=== PATIENT | female | born 1930 | race African-American/Black ===

== ENCOUNTER 2019-05-05 18:20 | Inpatient (IN) | payer MEDICARE, BC ==
[~2019-05-05] VITALS: Ht 172.7 cm; Wt 65.8 kg
[2019-05-05 20:00] VITALS: BP 124/50
[2019-05-05] MEDS ORDERED: DEXTROSE 50% WATER 50ML SYRINGE IV PRN ×2 (20:00→20:30)
[2019-05-05 20:21] VITALS: BP 135/60
[2019-05-05] MEDS: BLOOD SUGAR DIAGNOSTIC STRIP TEST SCH (21:50)
[2019-05-05] MEDS: INSULIN LISPRO 100 UNITS/ML SUBCUT SCH (21:53)
[2019-05-05] MEDS ORDERED: CLONIDINE 0.2MG TABLET PO PRN (22:00)
[2019-05-05] MEDS ORDERED: ONDANSETRON HCL 4MG TABLET PO PRN (22:00)
[2019-05-05] MEDS ORDERED: ACETAMINOPHEN 650MG SUPP PR PRN (22:00)
[2019-05-06 06:24] LABS: BASOPHILS % 0.1 % (0.0-2.0); EOSINOPHILS % 0.1 % (0.0-5.0); HEMATOCRIT. 24.3 % (36.0-48.0); LYMPHOCYTES % 7.5 % (20.0-50.0); MEAN CORPUSCULAR HEMOGLOBIN 27.4 pg (28.0-32.0); MEAN PLATELET VOLUME 7.6 fl (7.4-10.4); MONOCYTES % 10.3 % (2.0-8.0); PLATELET 230 x1000/uL (130-400); RED BLOOD CELL COUNT 2.93 mill/uL (4.2-5.4); RED CELL DISTRIBUTION WIDTH 14.9 % (11.6-14.6)
[2019-05-06] MEDS: BLOOD SUGAR DIAGNOSTIC STRIP TEST SCH ×4 (06:32→20:30)
[2019-05-06] MEDS: INSULIN LISPRO 100 UNITS/ML SUBCUT SCH ×4 (06:35→22:02)
[2019-05-06 06:42] LABS: CHLORIDE 103 mEq/L (98-107)
[2019-05-06 08:00] VITALS: BP 155/56
[2019-05-06] MEDS: FAMOTIDINE 20MG TABLET PO SCH (08:24)
[2019-05-06] MEDS: HYDROCODONE/ACETAMINOPHEN 5/325MG TABLET PO PRN ×2 (08:25→23:45)
[2019-05-06] MEDS ORDERED: POTASSIUM CHLORIDE 20MEQ TABLET SR PO NR (08:45)
[2019-05-06] MEDS ORDERED: POTASSIUM CHLORIDE 20MEQ TABLET SR PO SCH (09:00)
[2019-05-06] MEDS ORDERED: ENOXAPARIN 40MG/0.4ML SYR SUBCUT SCH (09:00)
[2019-05-06] MEDS ORDERED: CLONIDINE 0.1MG TABLET PO PRN (16:00)
[2019-05-06 16:25] LABS: CLARITY URINE CLOUDY (CLEAR); COLOR URINE YELLOW (YELLOW); KETONES URINE NEGATIVE (NEGATIVE); LEUKOCYTE ESTERASE URINE NEGATIVE (NEGATIVE); NITRITE URINE NEGATIVE (NEGATIVE); OCCULT BLOOD URINE 1+ (NEGATIVE); PH URINE 5.5 (4.5-8.0); PROTEIN URINE 2+ (NEGATIVE); SPECIFIC GRAVITY URINE 1.018 (1.005-1.030)
[2019-05-06 20:00] VITALS: BP 124/82
[2019-05-06] MEDS ORDERED: NON FORMULARY PATIENT HOME MED XX SCH (20:45)
[2019-05-06 20:50] LABS: TOTAL IRON BINDING CAPACITY 212 ug/dL (250-450)
[2019-05-06] MEDS: RIVAROXABAN 15 MG TABLET PO SCH (23:10)
[2019-05-07] MEDS: BLOOD SUGAR DIAGNOSTIC STRIP TEST SCH ×4 (05:59→21:40)
[2019-05-07] MEDS: INSULIN LISPRO 100 UNITS/ML SUBCUT SCH ×4 (06:00→21:40)
[2019-05-07] MEDS: HYDROCODONE/ACETAMINOPHEN 5/325MG TABLET PO PRN (06:21)
[2019-05-07 07:03] LABS: BASOPHILS % 0.5 % (0.0-2.0); EOSINOPHILS % 0.8 % (0.0-5.0); HEMATOCRIT. 24.2 % (36.0-48.0); HEMOGLOBIN. 8.2 g/dL (12.0-16.0); LYMPHOCYTES % 19.3 % (20.0-50.0); MEAN CORPUSCULAR HEMOGLOBIN 28.4 pg (28.0-32.0); MEAN CORPUSCULAR VOLUME 83.9 fL (81.0-99.0); MEAN PLATELET VOLUME 7.4 fl (7.4-10.4); MONOCYTES % 11.6 % (2.0-8.0); NEUTROPHILS % 67.8 % (40.0-76.0); PLATELET 271 x1000/uL (130-400); RED BLOOD CELL COUNT 2.88 mill/uL (4.2-5.4); RED CELL DISTRIBUTION WIDTH 14.8 % (11.6-14.6)
[2019-05-07 07:47] LABS: CHLORIDE 102 mEq/L (98-107)
[2019-05-07 07:56] LABS: HAPTOGLOBIN 407 mg/dL (30-200)
[2019-05-07 08:11] VITALS: BP 98/46
[2019-05-07] MEDS: FAMOTIDINE 20MG TABLET PO SCH (08:33)
[2019-05-07] MEDS: POTASSIUM CHLORIDE 20MEQ TABLET SR PO SCH (08:33)
[2019-05-07] MEDS: RIVAROXABAN 15 MG TABLET PO SCH ×2 (08:34→16:30)
[2019-05-07] MEDS ORDERED: FERROUS SULFATE 325MG TABLET PO SCH (18:15)
[2019-05-07] MEDS: DOCUSATE SODIUM 100MG CAPSULE PO SCH (18:22)
[2019-05-07 20:00] VITALS: BP 123/48
[2019-05-08] MEDS: BLOOD SUGAR DIAGNOSTIC STRIP TEST SCH ×5 (06:35→20:51)
[2019-05-08] MEDS: HYDROCODONE/ACETAMINOPHEN 5/325MG TABLET PO PRN (06:37)
[2019-05-08 06:55] LABS: BASOPHILS % 0.4 % (0.0-2.0); EOSINOPHILS % 0.9 % (0.0-5.0); HEMATOCRIT. 23.1 % (36.0-48.0); HEMOGLOBIN. 8.2 g/dL (12.0-16.0); LYMPHOCYTES % 20.3 % (20.0-50.0); MEAN CORPUSCULAR HEMOGLOBIN 29.4 pg (28.0-32.0); MEAN CORPUSCULAR VOLUME 83.2 fL (81.0-99.0); MEAN PLATELET VOLUME 7.1 fl (7.4-10.4); MONOCYTES % 11.3 % (2.0-8.0); NEUTROPHILS % 67.1 % (40.0-76.0); PLATELET 351 x1000/uL (130-400); RED BLOOD CELL COUNT 2.78 mill/uL (4.2-5.4); RED CELL DISTRIBUTION WIDTH 14.6 % (11.6-14.6)
[2019-05-08 07:17] LABS: CHLORIDE 100 mEq/L (98-107)
[2019-05-08 07:54] VITALS: BP 113/51
[2019-05-08 08:33] LABS: FOLIC ACID (FOLATE) SERUM 17.9 ng/mL (>5.38)
[2019-05-08] MEDS ORDERED: IRON SUCROSE COMPLEX 100 MG in SODIUM CHLORIDE 0.9% 50 ML IV SCH ×2 (09:00→21:00)
[2019-05-08] MEDS: INSULIN LISPRO 100 UNITS/ML SUBCUT SCH ×4 (09:00→20:59)
[2019-05-08] MEDS: FAMOTIDINE 20MG TABLET PO SCH (09:29)
[2019-05-08] MEDS: POTASSIUM CHLORIDE 20MEQ TABLET SR PO SCH (09:29)
[2019-05-08] MEDS: RIVAROXABAN 15 MG TABLET PO SCH ×2 (09:29→17:36)
[2019-05-08] MEDS: DOCUSATE SODIUM 100MG CAPSULE PO SCH ×2 (09:29→17:36)
[2019-05-08] MEDS ORDERED: CYANOCOBALAMIN 1000MCG/ML VIAL IM NR (10:45)
[2019-05-08] MEDS ORDERED: LACTULOSE 20G/30ML UDC PO NR (10:45)
[2019-05-08 20:00] VITALS: BP 121/53
[2019-05-08] MEDS: IRON SUCROSE COMPLEX 100 MG in SODIUM CHLORIDE 0.9% 100 ML IV SCH (20:11)
[2019-05-09] MEDS: HYDROCODONE/ACETAMINOPHEN 5/325MG TABLET PO PRN ×3 (00:34→23:36)
[2019-05-09] MEDS: BLOOD SUGAR DIAGNOSTIC STRIP TEST SCH ×6 (06:05→21:10)
[2019-05-09] MEDS: INSULIN LISPRO 100 UNITS/ML SUBCUT SCH ×4 (06:08→21:42)
[2019-05-09 07:58] LABS: BASOPHILS % 0.3 % (0.0-2.0); EOSINOPHILS % 0.6 % (0.0-5.0); HEMOGLOBIN. 7.3 g/dL (12.0-16.0); LYMPHOCYTES % 22.8 % (20.0-50.0); MEAN CORPUSCULAR HEMOGLOBIN 27.5 pg (28.0-32.0); MEAN CORPUSCULAR VOLUME 82.7 fL (81.0-99.0); MEAN PLATELET VOLUME 6.8 fl (7.4-10.4); MONOCYTES % 13.7 % (2.0-8.0); NEUTROPHILS % 62.6 % (40.0-76.0); PLATELET 389 x1000/uL (130-400); RED BLOOD CELL COUNT 2.66 mill/uL (4.2-5.4); RED CELL DISTRIBUTION WIDTH 14.7 % (11.6-14.6)
[2019-05-09 08:06] VITALS: BP 130/54
[2019-05-09] MEDS: DOCUSATE SODIUM 100MG CAPSULE PO SCH ×2 (08:25→17:25)
[2019-05-09] MEDS: POTASSIUM CHLORIDE 20MEQ TABLET SR PO SCH (08:25)
[2019-05-09] MEDS: RIVAROXABAN 15 MG TABLET PO SCH ×2 (08:26→17:25)
[2019-05-09] MEDS: FAMOTIDINE 20MG TABLET PO SCH (08:26)
[2019-05-09] MEDS ORDERED: ACETAMINOPHEN 500MG TABLET PO NR (11:15)
[2019-05-09] MEDS ORDERED: DIPHENHYDRAMINE 25MG CAPSULE PO NR (11:15)
[2019-05-09 20:00] VITALS: BP 108/50
[2019-05-09] MEDS: IRON SUCROSE COMPLEX 100 MG in SODIUM CHLORIDE 0.9% 100 ML IV SCH (21:41)
[2019-05-10] MEDS: BLOOD SUGAR DIAGNOSTIC STRIP TEST SCH ×4 (06:24→21:31)
[2019-05-10] MEDS: INSULIN LISPRO 100 UNITS/ML SUBCUT SCH ×4 (06:24→21:46)
[2019-05-10 08:00] VITALS: BP 126/50
[2019-05-10] MEDS: RIVAROXABAN 15 MG TABLET PO SCH ×2 (09:03→17:23)
[2019-05-10] MEDS: FAMOTIDINE 20MG TABLET PO SCH (09:03)
[2019-05-10] MEDS: POTASSIUM CHLORIDE 20MEQ TABLET SR PO SCH (09:03)
[2019-05-10] MEDS: HYDROCODONE/ACETAMINOPHEN 5/325MG TABLET PO PRN ×2 (09:03→18:27)
[2019-05-10] MEDS: DOCUSATE SODIUM 100MG CAPSULE PO SCH ×2 (09:03→17:23)
[2019-05-10 09:22] LABS: BASOPHILS % 0.5 % (0.0-2.0); EOSINOPHILS % 0.7 % (0.0-5.0); HEMATOCRIT. 27.8 % (36.0-48.0); HEMOGLOBIN. 9.2 g/dL (12.0-16.0); MEAN CORPUSCULAR HEMOGLOBIN 27.8 pg (28.0-32.0); MEAN CORPUSCULAR VOLUME 83.9 fL (81.0-99.0); MEAN PLATELET VOLUME 6.6 fl (7.4-10.4); MONOCYTES % 10.2 % (2.0-8.0); NEUTROPHILS % 72.6 % (40.0-76.0); PLATELET 524 x1000/uL (130-400); RED BLOOD CELL COUNT 3.31 mill/uL (4.2-5.4); RED CELL DISTRIBUTION WIDTH 15.1 % (11.6-14.6)
[2019-05-10] MEDS: LACTULOSE 20G/30ML UDC PO SCH ×3 (15:50→21:31)
[2019-05-10] MEDS ORDERED: ROSU20TA2 MT (18:54)
[2019-05-10] MEDS ORDERED: SITA1TAB6 MT (18:54)
[2019-05-10] MEDS ORDERED: CHLO25TA2 MT (18:54)
[2019-05-10] MEDS ORDERED: IPRA4AER INH (18:54)
[2019-05-10] MEDS ORDERED: AMLO-79 MT (18:54)
[2019-05-10] MEDS ORDERED: CHOL500051 MT (18:54)
[2019-05-10 20:00] VITALS: BP 112/52
[2019-05-10] MEDS: IRON SUCROSE COMPLEX 100 MG in SODIUM CHLORIDE 0.9% 100 ML IV SCH (21:31)
[2019-05-11] VITALS (8 sets, daily range): BP systolic 101–154; BP diastolic 45–77
[2019-05-11] MEDS: BLOOD SUGAR DIAGNOSTIC STRIP TEST SCH ×4 (06:22→21:00)
[2019-05-11] MEDS: HYDROCODONE/ACETAMINOPHEN 5/325MG TABLET PO PRN ×2 (08:01→14:53)
[2019-05-11] MEDS: POTASSIUM CHLORIDE 20MEQ TABLET SR PO SCH (08:01)
[2019-05-11] MEDS: DOCUSATE SODIUM 100MG CAPSULE PO SCH ×2 (08:01→17:00)
[2019-05-11] MEDS: FAMOTIDINE 20MG TABLET PO SCH (08:01)
[2019-05-11] MEDS: RIVAROXABAN 15 MG TABLET PO SCH ×2 (08:01→16:58)
[2019-05-11] MEDS: INSULIN LISPRO 100 UNITS/ML SUBCUT SCH ×4 (08:05→23:13)
[2019-05-11 12:03] LABS: CHLORIDE 99 mEq/L (98-107)
[2019-05-11 12:13] LABS: BASOPHILS % 0.5 % (0.0-2.0); EOSINOPHILS % 0.3 % (0.0-5.0); HEMOGLOBIN. 7.5 g/dL (12.0-16.0); LYMPHOCYTES % 9.7 % (20.0-50.0); MEAN CORPUSCULAR HEMOGLOBIN 28.5 pg (28.0-32.0); MEAN CORPUSCULAR VOLUME 83.5 fL (81.0-99.0); MEAN PLATELET VOLUME 6.6 fl (7.4-10.4); MONOCYTES % 8.9 % (2.0-8.0); NEUTROPHILS % 80.6 % (40.0-76.0); PLATELET 559 x1000/uL (130-400); RED BLOOD CELL COUNT 2.63 mill/uL (4.2-5.4); RED CELL DISTRIBUTION WIDTH 15.1 % (11.6-14.6)
[2019-05-11 19:30] LABS: TOTAL IRON BINDING CAPACITY 197 ug/dL (250-450)
[2019-05-11] MEDS ORDERED: DIPHENHYDRAMINE 25MG CAPSULE PO SCH (19:45)
[2019-05-11] MEDS ORDERED: ACETAMINOPHEN 500MG TABLET PO SCH (19:45)
[2019-05-11] MEDS: IRON SUCROSE COMPLEX 100 MG in SODIUM CHLORIDE 0.9% 100 ML IV SCH (21:00)
[2019-05-12 00:58] LABS: HEMATOCRIT 29.7 % (36.0-48.0); HEMOGLOBIN 9.8 g/dL (12.0-16.0)
[2019-05-12 02:00] VITALS: BP 126/71
[2019-05-12] MEDS: BLOOD SUGAR DIAGNOSTIC STRIP TEST SCH ×4 (06:03→21:12)
[2019-05-12] MEDS: INSULIN LISPRO 100 UNITS/ML SUBCUT SCH ×4 (06:36→21:26)
[2019-05-12 07:32] LABS: BASOPHILS % 0.4 % (0.0-2.0); EOSINOPHILS % 0.5 % (0.0-5.0); HEMATOCRIT. 30.2 % (36.0-48.0); LYMPHOCYTES % 15.7 % (20.0-50.0); MEAN CORPUSCULAR HEMOGLOBIN 28.4 pg (28.0-32.0); MEAN CORPUSCULAR VOLUME 86.9 fL (81.0-99.0); MEAN PLATELET VOLUME 6.7 fl (7.4-10.4); MONOCYTES % 9.5 % (2.0-8.0); NEUTROPHILS % 73.9 % (40.0-76.0); PLATELET 603 x1000/uL (130-400); RED BLOOD CELL COUNT 3.48 mill/uL (4.2-5.4); RED CELL DISTRIBUTION WIDTH 14.9 % (11.6-14.6)
[2019-05-12 07:58] LABS: HEMOGLOBIN. 9.9 g/dL (12.0-16.0)
[2019-05-12 08:24] LABS: CHLORIDE 104 mEq/L (98-107)
[2019-05-12 08:30] VITALS: BP 152/67
[2019-05-12] MEDS: POTASSIUM CHLORIDE 20MEQ TABLET SR PO SCH (09:20)
[2019-05-12] MEDS: RIVAROXABAN 15 MG TABLET PO SCH ×2 (09:20→16:13)
[2019-05-12] MEDS: FAMOTIDINE 20MG TABLET PO SCH (09:20)
[2019-05-12] MEDS: DOCUSATE SODIUM 100MG CAPSULE PO SCH ×2 (09:20→16:13)
[2019-05-12] MEDS: HYDROCODONE/ACETAMINOPHEN 5/325MG TABLET PO PRN ×2 (11:23→16:14)
[2019-05-12 20:00] VITALS: BP 118/68
[2019-05-12] MEDS: IRON SUCROSE COMPLEX 100 MG in SODIUM CHLORIDE 0.9% 100 ML IV SCH (22:47)
[2019-05-13] MEDS: HYDROCODONE/ACETAMINOPHEN 5/325MG TABLET PO PRN ×4 (02:43→21:37)
[2019-05-13] MEDS: BLOOD SUGAR DIAGNOSTIC STRIP TEST SCH ×4 (06:49→20:23)
[2019-05-13] MEDS: INSULIN LISPRO 100 UNITS/ML SUBCUT SCH ×4 (07:26→21:38)
[2019-05-13] MEDS: POTASSIUM CHLORIDE 20MEQ TABLET SR PO SCH (08:57)
[2019-05-13] MEDS: RIVAROXABAN 15 MG TABLET PO SCH ×2 (08:57→16:57)
[2019-05-13] MEDS: FAMOTIDINE 20MG TABLET PO SCH (08:58)
[2019-05-13] MEDS: DOCUSATE SODIUM 100MG CAPSULE PO SCH ×2 (08:58→16:57)
[2019-05-13 20:00] VITALS: BP 135/72
[2019-05-13] MEDS: INSULIN GLARGINE UD 100 UNITS/ML SYR SUBCUT SCH (21:39)
[2019-05-14] MEDS: BLOOD SUGAR DIAGNOSTIC STRIP TEST SCH ×4 (05:35→21:00)
[2019-05-14] MEDS: HYDROCODONE/ACETAMINOPHEN 5/325MG TABLET PO PRN ×3 (05:46→14:33)
[2019-05-14] MEDS: INSULIN LISPRO 100 UNITS/ML SUBCUT SCH ×4 (06:07→21:00)
[2019-05-14 08:00] VITALS: BP 137/71
[2019-05-14] MEDS: DOCUSATE SODIUM 100MG CAPSULE PO SCH ×2 (09:02→16:48)
[2019-05-14] MEDS: FAMOTIDINE 20MG TABLET PO SCH (09:02)
[2019-05-14] MEDS: FERROUS SULFATE 325MG TABLET PO SCH ×3 (09:02→16:48)
[2019-05-14] MEDS: POTASSIUM CHLORIDE 20MEQ TABLET SR PO SCH (09:02)
[2019-05-14] MEDS: RIVAROXABAN 15 MG TABLET PO SCH ×2 (09:02→16:48)
[2019-05-14] MEDS: INSULIN GLARGINE UD 100 UNITS/ML SYR SUBCUT SCH ×2 (09:03→22:38)
[2019-05-14] MEDS ORDERED: TRAMADOL HCL/ACETAMINOPHEN 37.5/325MG TABLET PO SCH (14:15)
[2019-05-14] MEDS: LACTULOSE 20G/30ML UDC PO SCH ×2 (16:48→21:00)
[2019-05-14 20:00] VITALS: BP 108/58
[2019-05-15 08:16] VITALS: BP 159/70
[2019-05-15] MEDS: LACTULOSE 20G/30ML UDC PO SCH (08:31)
[2019-05-15] MEDS: FERROUS SULFATE 325MG TABLET PO SCH ×3 (08:31→16:27)
[2019-05-15] MEDS: FAMOTIDINE 20MG TABLET PO SCH (08:31)
[2019-05-15] MEDS: RIVAROXABAN 15 MG TABLET PO SCH ×2 (08:31→16:50)
[2019-05-15] MEDS: POTASSIUM CHLORIDE 20MEQ TABLET SR PO SCH (08:31)
[2019-05-15] MEDS: DOCUSATE SODIUM 100MG CAPSULE PO SCH ×2 (08:31→16:27)
[2019-05-15] MEDS: HYDROCODONE/ACETAMINOPHEN 5/325MG TABLET PO PRN ×3 (08:47→20:22)
[2019-05-15] MEDS: INSULIN LISPRO 100 UNITS/ML SUBCUT SCH ×4 (08:51→21:41)
[2019-05-15] MEDS: INSULIN GLARGINE UD 100 UNITS/ML SYR SUBCUT SCH ×2 (09:36→21:41)
[2019-05-15] MEDS: BLOOD SUGAR DIAGNOSTIC STRIP TEST SCH ×3 (11:18→20:23)
[2019-05-15] MEDS ORDERED: RIVA20TA MT (13:28)
[2019-05-15] MEDS ORDERED: XAR15 MT (13:28)
[2019-05-15 20:00] VITALS: BP 133/67
[2019-05-16] MEDS: BLOOD SUGAR DIAGNOSTIC STRIP TEST SCH ×4 (05:35→21:46)
[2019-05-16] MEDS: INSULIN LISPRO 100 UNITS/ML SUBCUT SCH ×4 (05:36→21:45)
[2019-05-16 06:59] LABS: CHLORIDE 106 mEq/L (98-107)
[2019-05-16 08:00] VITALS: BP 158/70
[2019-05-16] MEDS: RIVAROXABAN 15 MG TABLET PO SCH ×2 (09:17→16:24)
[2019-05-16] MEDS: DOCUSATE SODIUM 100MG CAPSULE PO SCH ×2 (09:17→16:24)
[2019-05-16] MEDS: FERROUS SULFATE 325MG TABLET PO SCH ×3 (09:17→16:24)
[2019-05-16] MEDS: FAMOTIDINE 20MG TABLET PO SCH (09:17)
[2019-05-16 09:30] LABS: BASOPHILS % 0.2 % (0.0-2.0); EOSINOPHILS % 0.5 % (0.0-5.0); HEMATOCRIT. 29.1 % (36.0-48.0); HEMOGLOBIN. 9.6 g/dL (12.0-16.0); MEAN CORPUSCULAR HEMOGLOBIN 28.6 pg (28.0-32.0); MEAN CORPUSCULAR VOLUME 86.5 fL (81.0-99.0); MEAN PLATELET VOLUME 6.2 fl (7.4-10.4); MONOCYTES % 6.6 % (2.0-8.0); NEUTROPHILS % 82.7 % (40.0-76.0); PLATELET 796 x1000/uL (130-400); RED BLOOD CELL COUNT 3.37 mill/uL (4.2-5.4); RED CELL DISTRIBUTION WIDTH 16.7 % (11.6-14.6)
[2019-05-16] MEDS: POTASSIUM CHLORIDE 20MEQ TABLET SR PO SCH (09:34)
[2019-05-16] MEDS ORDERED: HYDROCODONE/ACETAMINOPHEN 5/325MG TABLET PO PRN (10:00)
[2019-05-16] MEDS: INSULIN GLARGINE UD 100 UNITS/ML SYR SUBCUT SCH ×2 (10:01→21:45)
[2019-05-16 10:49] VITALS: BP 153/73
[2019-05-16 20:00] VITALS: BP 110/59
[2019-05-16 23:51] LABS: CLARITY URINE CLEAR (CLEAR); COLOR URINE YELLOW (YELLOW); KETONES URINE NEGATIVE (NEGATIVE); LEUKOCYTE ESTERASE URINE NEGATIVE (NEGATIVE); NITRITE URINE NEGATIVE (NEGATIVE); OCCULT BLOOD URINE NEGATIVE (NEGATIVE); PH URINE 7.5 (4.5-8.0); PROTEIN URINE NEGATIVE (NEGATIVE); SPECIFIC GRAVITY URINE 1.003 (1.005-1.030); UROBILINOGEN URINE 0.2 E.U./dL (0.2-1.0)
[2019-05-17 04:06] LABS: 25-HYDROXY VITAMIN D3 4.7 ng/mL (.)
[2019-05-17] MEDS: BLOOD SUGAR DIAGNOSTIC STRIP TEST SCH ×4 (05:43→21:41)
[2019-05-17] MEDS: INSULIN LISPRO 100 UNITS/ML SUBCUT SCH ×4 (06:08→21:59)
[2019-05-17 07:30] VITALS: BP 152/71
[2019-05-17 08:00] VITALS: BP 152/71
[2019-05-17] MEDS: RIVAROXABAN 15 MG TABLET PO SCH ×2 (08:33→16:24)
[2019-05-17] MEDS: FAMOTIDINE 20MG TABLET PO SCH (08:33)
[2019-05-17] MEDS: POTASSIUM CHLORIDE 20MEQ TABLET SR PO SCH (08:33)
[2019-05-17] MEDS: FERROUS SULFATE 325MG TABLET PO SCH ×3 (08:33→16:24)
[2019-05-17] MEDS: DOCUSATE SODIUM 100MG CAPSULE PO SCH ×2 (08:33→16:24)
[2019-05-17] MEDS: HYDROCODONE/ACETAMINOPHEN 5/325MG TABLET PO PRN ×2 (08:33→21:43)
[2019-05-17] MEDS: INSULIN GLARGINE UD 100 UNITS/ML SYR SUBCUT SCH ×2 (10:16→21:55)
[2019-05-17 10:56] LABS: BASOPHILS % 0.4 % (0.0-2.0); EOSINOPHILS % 0.4 % (0.0-5.0); HEMOGLOBIN. 9.5 g/dL (12.0-16.0); MEAN CORPUSCULAR HEMOGLOBIN 29.3 pg (28.0-32.0); MEAN CORPUSCULAR VOLUME 86.8 fL (81.0-99.0); MONOCYTES % 7.5 % (2.0-8.0); NEUTROPHILS % 81.7 % (40.0-76.0); PLATELET 737 x1000/uL (130-400); RED BLOOD CELL COUNT 3.23 mill/uL (4.2-5.4)
[2019-05-17] MEDS ORDERED: BISACODYL 5MG TABLET PO PRN (11:15)
[2019-05-17] MEDS: LACTULOSE 20G/30ML UDC PO SCH ×2 (16:24→21:00)
[2019-05-17 20:00] VITALS: BP 136/74
[2019-05-18] MEDS: BLOOD SUGAR DIAGNOSTIC STRIP TEST SCH ×4 (05:59→21:44)
[2019-05-18 08:00] VITALS: BP 155/65
[2019-05-18] MEDS: LACTULOSE 20G/30ML UDC PO SCH (08:26)
[2019-05-18] MEDS: FERROUS SULFATE 325MG TABLET PO SCH ×3 (08:27→16:03)
[2019-05-18] MEDS: HYDROCODONE/ACETAMINOPHEN 5/325MG TABLET PO PRN (08:27)
[2019-05-18] MEDS: RIVAROXABAN 15 MG TABLET PO SCH ×2 (08:27→17:49)
[2019-05-18] MEDS: DOCUSATE SODIUM 100MG CAPSULE PO SCH ×2 (08:27→16:03)
[2019-05-18] MEDS: FAMOTIDINE 20MG TABLET PO SCH (08:27)
[2019-05-18] MEDS: INSULIN LISPRO 100 UNITS/ML SUBCUT SCH ×4 (09:00→21:46)
[2019-05-18] MEDS: INSULIN GLARGINE UD 100 UNITS/ML SYR SUBCUT SCH ×2 (10:58→22:46)
[2019-05-18 20:00] VITALS: BP 139/58
[2019-05-19] MEDS: BLOOD SUGAR DIAGNOSTIC STRIP TEST SCH ×4 (05:50→21:39)
[2019-05-19] MEDS: INSULIN LISPRO 100 UNITS/ML SUBCUT SCH ×4 (06:38→21:43)
[2019-05-19 08:21] VITALS: BP 155/70
[2019-05-19] MEDS: FERROUS SULFATE 325MG TABLET PO SCH ×3 (09:25→16:55)
[2019-05-19] MEDS: FAMOTIDINE 20MG TABLET PO SCH (09:25)
[2019-05-19] MEDS: DOCUSATE SODIUM 100MG CAPSULE PO SCH ×2 (09:25→16:55)
[2019-05-19] MEDS: HYDROCODONE/ACETAMINOPHEN 5/325MG TABLET PO PRN ×2 (09:26→18:41)
[2019-05-19] MEDS: INSULIN GLARGINE UD 100 UNITS/ML SYR SUBCUT SCH ×2 (09:29→21:44)
[2019-05-19 11:03] LABS: BASOPHILS % 0.5 % (0.0-2.0); EOSINOPHILS % 0.7 % (0.0-5.0); HEMATOCRIT. 27.2 % (36.0-48.0); HEMOGLOBIN. 9.1 g/dL (12.0-16.0); LYMPHOCYTES % 13.3 % (20.0-50.0); MEAN CORPUSCULAR HEMOGLOBIN 29.2 pg (28.0-32.0); MEAN CORPUSCULAR VOLUME 86.9 fL (81.0-99.0); MEAN PLATELET VOLUME 6.1 fl (7.4-10.4); MONOCYTES % 10.6 % (2.0-8.0); NEUTROPHILS % 74.9 % (40.0-76.0); PLATELET 668 x1000/uL (130-400); RED BLOOD CELL COUNT 3.12 mill/uL (4.2-5.4)
[2019-05-19 11:10] LABS: CHLORIDE 100 mEq/L (98-107)
[2019-05-19] MEDS: LACTULOSE 20G/30ML UDC PO SCH ×2 (17:41→21:38)
[2019-05-19 20:00] VITALS: BP 166/72
[2019-05-19] MEDS: RIVAROXABAN 15 MG TABLET PO SCH (21:46)
[2019-05-20] MEDS: BLOOD SUGAR DIAGNOSTIC STRIP TEST SCH ×4 (06:01→20:14)
[2019-05-20] MEDS: INSULIN LISPRO 100 UNITS/ML SUBCUT SCH ×4 (06:17→22:10)
[2019-05-20 08:26] VITALS: BP 147/65
[2019-05-20] MEDS: LACTULOSE 20G/30ML UDC PO SCH (08:54)
[2019-05-20] MEDS: RIVAROXABAN 15 MG TABLET PO SCH ×2 (08:55→16:36)
[2019-05-20] MEDS: FERROUS SULFATE 325MG TABLET PO SCH ×3 (08:55→16:36)
[2019-05-20] MEDS: HYDROCODONE/ACETAMINOPHEN 5/325MG TABLET PO PRN (08:55)
[2019-05-20] MEDS: DOCUSATE SODIUM 100MG CAPSULE PO SCH ×2 (08:55→16:36)
[2019-05-20] MEDS: FAMOTIDINE 20MG TABLET PO SCH (08:55)
[2019-05-20] MEDS: INSULIN GLARGINE UD 100 UNITS/ML SYR SUBCUT SCH ×2 (10:26→22:10)
[2019-05-20] MEDS ORDERED: CLONIDINE 0.2MG TABLET PO PRN (13:15)
[2019-05-20 20:00] VITALS: BP 159/72
[2019-05-20] MEDS: ASCORBIC ACID 500 MG TABLET PO SCH (20:14)
[2019-05-20] MEDS: ZINC SULFATE 220 MG ( 50 ) CAPSULE PO SCH (20:14)
[2019-05-20] MEDS: HYDROCORTISONE ACETATE 25MG SUPP PR SCH (20:14)
[2019-05-21] MEDS: BLOOD SUGAR DIAGNOSTIC STRIP TEST SCH ×3 (05:38→20:55)
[2019-05-21] MEDS: INSULIN LISPRO 100 UNITS/ML SUBCUT SCH ×3 (05:38→22:14)
[2019-05-21 08:00] VITALS: BP 151/71
[2019-05-21] MEDS: RIVAROXABAN 15 MG TABLET PO SCH ×2 (08:58→17:22)
[2019-05-21] MEDS: HYDROCORTISONE ACETATE 25MG SUPP PR SCH ×2 (08:58→20:55)
[2019-05-21] MEDS: FAMOTIDINE 20MG TABLET PO SCH (08:58)
[2019-05-21] MEDS: ASCORBIC ACID 500 MG TABLET PO SCH (08:58)
[2019-05-21] MEDS: ZINC SULFATE 220 MG ( 50 ) CAPSULE PO SCH (08:58)
[2019-05-21] MEDS: DOCUSATE SODIUM 100MG CAPSULE PO SCH ×2 (08:58→17:22)
[2019-05-21] MEDS: FERROUS SULFATE 325MG TABLET PO SCH ×3 (08:58→17:23)
[2019-05-21] MEDS: HYDROCODONE/ACETAMINOPHEN 5/325MG TABLET PO PRN ×3 (09:00→22:25)
[2019-05-21] MEDS: INSULIN GLARGINE UD 100 UNITS/ML SYR SUBCUT SCH ×2 (10:08→22:14)
[2019-05-21] MEDS ORDERED: HYDR25SU37 RC (10:51)
[2019-05-21] MEDS ORDERED: RIVA20TA MT (10:51)
[2019-05-21] MEDS ORDERED: DOCU250C14 MT (11:38)
[2019-05-21] MEDS ORDERED: HYDR-4001 MT (11:38)
[2019-05-21] MEDS ORDERED: LIDOCAINE HCL/EPINEPHRINE 1%-EPI 1:100,000 30 ML VIAL INFIL ONE (12:00)
[2019-05-21] MEDS ORDERED: LIDOCAINE HCL/EPINEPHRINE 1%-EPI 1:100,000 20 ML VIAL INFIL NR (12:30)
[2019-05-21 20:00] VITALS: BP_SYST 111; BP_SYST 143; BP_DIAS 52; BP_DIAS 80
[2019-05-22 01:23] VITALS: BP 143/52
[2019-05-22] MEDS: HYDROCODONE/ACETAMINOPHEN 5/325MG TABLET PO PRN ×2 (03:43→19:29)
[2019-05-22] MEDS: BLOOD SUGAR DIAGNOSTIC STRIP TEST SCH ×4 (06:35→21:11)
[2019-05-22] MEDS: INSULIN LISPRO 100 UNITS/ML SUBCUT SCH ×4 (06:35→21:00)
[2019-05-22 08:00] VITALS: BP 140/63
[2019-05-22] MEDS: FAMOTIDINE 20MG TABLET PO SCH (08:13)
[2019-05-22] MEDS: FERROUS SULFATE 325MG TABLET PO SCH ×3 (08:14→16:25)
[2019-05-22] MEDS: RIVAROXABAN 15 MG TABLET PO SCH ×2 (08:14→16:25)
[2019-05-22] MEDS: DOCUSATE SODIUM 100MG CAPSULE PO SCH ×2 (08:14→16:25)
[2019-05-22] MEDS: ZINC SULFATE 220 MG ( 50 ) CAPSULE PO SCH (08:14)
[2019-05-22] MEDS: ASCORBIC ACID 500 MG TABLET PO SCH (08:14)
[2019-05-22] MEDS: HYDROCORTISONE ACETATE 25MG SUPP PR SCH ×2 (08:50→21:00)
[2019-05-22] MEDS: INSULIN GLARGINE UD 100 UNITS/ML SYR SUBCUT SCH ×2 (09:35→22:09)
[2019-05-22] MEDS ORDERED: LACTULOSE 20G/30ML UDC PO SCH (09:45)
[2019-05-22 20:00] VITALS: BP 139/59
[2019-05-23] MEDS: HYDROCODONE/ACETAMINOPHEN 5/325MG TABLET PO PRN ×2 (04:08→17:27)
[2019-05-23] MEDS: INSULIN LISPRO 100 UNITS/ML SUBCUT SCH ×4 (05:44→20:47)
[2019-05-23] MEDS: BLOOD SUGAR DIAGNOSTIC STRIP TEST SCH ×4 (05:44→20:41)
[2019-05-23 07:54] LABS: BASOPHILS % 0.6 % (0.0-2.0); EOSINOPHILS % 2.5 % (0.0-5.0); HEMATOCRIT. 28.5 % (36.0-48.0); HEMOGLOBIN. 9.4 g/dL (12.0-16.0); LYMPHOCYTES % 24.1 % (20.0-50.0); MEAN CORPUSCULAR HEMOGLOBIN 28.5 pg (28.0-32.0); MEAN CORPUSCULAR VOLUME 85.9 fL (81.0-99.0); MEAN PLATELET VOLUME 6.2 fl (7.4-10.4); MONOCYTES % 13.8 % (2.0-8.0); PLATELET 540 x1000/uL (130-400); RED BLOOD CELL COUNT 3.32 mill/uL (4.2-5.4); RED CELL DISTRIBUTION WIDTH 17.9 % (11.6-14.6)
[2019-05-23 08:00] VITALS: BP 136/64
[2019-05-23] MEDS: RIVAROXABAN 15 MG TABLET PO SCH ×2 (08:11→16:23)
[2019-05-23] MEDS: FAMOTIDINE 20MG TABLET PO SCH (08:11)
[2019-05-23] MEDS: ASCORBIC ACID 500 MG TABLET PO SCH (08:11)
[2019-05-23] MEDS: FERROUS SULFATE 325MG TABLET PO SCH ×3 (08:11→16:23)
[2019-05-23] MEDS: ZINC SULFATE 220 MG ( 50 ) CAPSULE PO SCH (08:11)
[2019-05-23] MEDS: HYDROCORTISONE ACETATE 25MG SUPP PR SCH ×2 (08:12→20:39)
[2019-05-23] MEDS: POLYETHYLENE GLYCOL 3350 (17GM) 1 DOSE PACK PO SCH (08:12)
[2019-05-23] MEDS: DOCUSATE SODIUM 100MG CAPSULE PO SCH ×2 (08:12→16:23)
[2019-05-23 08:35] LABS: CHLORIDE 104 mEq/L (98-107)
[2019-05-23 08:46] LABS: PHOSPHORUS 3.4 mg/dL (2.5-4.9)
[2019-05-23] MEDS: INSULIN GLARGINE UD 100 UNITS/ML SYR SUBCUT SCH ×2 (09:45→22:07)
[2019-05-23 20:00] VITALS: BP 142/62
[2019-05-24] MEDS: BLOOD SUGAR DIAGNOSTIC STRIP TEST SCH ×4 (05:49→21:27)
[2019-05-24] MEDS: HYDROCODONE/ACETAMINOPHEN 5/325MG TABLET PO PRN ×2 (05:50→12:18)
[2019-05-24 08:00] VITALS: BP 132/68
[2019-05-24] MEDS: INSULIN LISPRO 100 UNITS/ML SUBCUT SCH ×4 (08:14→21:47)
[2019-05-24] MEDS: HYDROCORTISONE ACETATE 25MG SUPP PR SCH ×2 (09:00→21:28)
[2019-05-24] MEDS: INSULIN GLARGINE UD 100 UNITS/ML SYR SUBCUT SCH ×2 (10:24→21:47)
[2019-05-24] MEDS: DOCUSATE SODIUM 100MG CAPSULE PO SCH ×2 (10:26→16:38)
[2019-05-24] MEDS: RIVAROXABAN 15 MG TABLET PO SCH ×2 (10:26→16:38)
[2019-05-24] MEDS: ASCORBIC ACID 500 MG TABLET PO SCH (10:26)
[2019-05-24] MEDS: ZINC SULFATE 220 MG ( 50 ) CAPSULE PO SCH (10:26)
[2019-05-24] MEDS: POLYETHYLENE GLYCOL 3350 (17GM) 1 DOSE PACK PO SCH (10:27)
[2019-05-24] MEDS: FAMOTIDINE 20MG TABLET PO SCH (10:27)
[2019-05-24] MEDS: FERROUS SULFATE 325MG TABLET PO SCH ×3 (10:27→16:38)
[2019-05-24 20:00] VITALS: BP 130/58
[2019-05-25] MEDS: HYDROCODONE/ACETAMINOPHEN 5/325MG TABLET PO PRN (03:11)
[2019-05-25] MEDS: BLOOD SUGAR DIAGNOSTIC STRIP TEST SCH ×2 (06:20→11:28)
[2019-05-25] MEDS: INSULIN LISPRO 100 UNITS/ML SUBCUT SCH ×2 (06:20→13:53)
[2019-05-25 08:00] VITALS: BP 142/70
[2019-05-25] MEDS: ASCORBIC ACID 500 MG TABLET PO SCH (09:00)
[2019-05-25] MEDS: DOCUSATE SODIUM 100MG CAPSULE PO SCH (09:00)
[2019-05-25] MEDS: HYDROCORTISONE ACETATE 25MG SUPP PR SCH (09:00)
[2019-05-25] MEDS: ZINC SULFATE 220 MG ( 50 ) CAPSULE PO SCH (09:00)
[2019-05-25] MEDS: FERROUS SULFATE 325MG TABLET PO SCH ×2 (09:00→13:50)
[2019-05-25] MEDS: POLYETHYLENE GLYCOL 3350 (17GM) 1 DOSE PACK PO SCH (09:00)
[2019-05-25] MEDS: FAMOTIDINE 20MG TABLET PO SCH (09:00)
[2019-05-25] MEDS: RIVAROXABAN 15 MG TABLET PO SCH (09:00)
[2019-05-25] MEDS ORDERED: NA PHOS,M-B/NA PHOS,DI-BA ENEMA 118ML PR NR (11:30)
[2019-05-25] MEDS: INSULIN GLARGINE UD 100 UNITS/ML SYR SUBCUT SCH (11:49)
[2019-05-25 12:15] VITALS: BP 142/70
[2019-05-28] MEDS ORDERED: RIVAROXABAN 20 MG TABLET PO SCH (17:00)
== END 2019-05-25 15:00 | disposition home health service (06) | DRG 535 ==
PROVIDERS: ADMIT Physical Medicine & Rehabilitation Spinal Cord Injury Medicine; ATTEND Internal Medicine Nephrology
PROC: 30233N1 Transfusion of Nonautologous Red Blood Cells into Peripheral Vein, Percutaneous Approach (ICD-10-PCS; principal; 2019-05-11)
DX: S72.002A Fracture of unspecified part of neck of left femur, initial encounter for closed fracture (principal); E43 Unspecified severe protein-calorie malnutrition; N39.0 Urinary tract infection, site not specified; N17.9 Acute kidney failure, unspecified; I82.431 Acute embolism and thrombosis of right popliteal vein; R26.9 Unspecified abnormalities of gait and mobility; D63.8 Anemia in other chronic diseases classified elsewhere; I10 Essential (primary) hypertension; E87.6 Hypokalemia; R53.81 Other malaise; L89.156 Pressure-induced deep tissue damage of sacral region; J44.9 Chronic obstructive pulmonary disease, unspecified; Z96.642 Presence of left artificial hip joint; W10.8XXA Fall (on) (from) other stairs and steps, initial encounter; Y93.01 Activity, walking, marching and hiking; E11.65 Type 2 diabetes mellitus with hyperglycemia; E83.42 Hypomagnesemia; D50.9 Iron deficiency anemia, unspecified; N81.4 Uterovaginal prolapse, unspecified; F06.31 Mood disorder due to known physiological condition with depressive features; L81.6 Other disorders of diminished melanin formation; D71 Functional disorders of polymorphonuclear neutrophils; K64.9 Unspecified hemorrhoids; Y99.8 Other external cause status; Z83.3 Family history of diabetes mellitus; Z79.899 Other long term (current) drug therapy; Z68.22 Body mass index [BMI] 22.0-22.9, adult; Y92.811 Bus as the place of occurrence of the external cause; Z82.49 Family history of ischemic heart disease and other diseases of the circulatory system; Z91.81 History of falling
CPT/HCPCS: 36415; 71046; 73502; 80048; 81003; 82270; 82306; 82607; 82728; 82746; 82962; 83010; 83540; 83550; 83615; 83735; 84100; 84134; 84443; 85014; 85018; 86850; 86900; 86920; 93970; 97110; 97116; 97150; 97162; 97166; 97530; 97535; C1893; J1650; J1815; J3420; J3490; J7040; J7050; P9016; Q0163